=== PATIENT | female | born 1990 | race Caucasian/White ===

== ENCOUNTER 2019-06-09 11:40 | Emergency (ER) | payer OTHER, MEDICAID, SELFPAY ==
[2019-06-09 11:46] VITALS: BP 149/91; PULSE 95; RESP 20; TEMP 38.1; O2SAT 95; BMI 46.3
--- NOTE | 2019-06-09 11:52 | DI.RAD.S_ITS ---
PROCEDURE: XR CHEST 2V INDICATIONS: cough since 05/30/19 TECHNIQUE: 2 views of the chest were acquired. COMPARISON: None. FINDINGS: Surgical changes and devices: None. Lungs and pleura: Lungs are clear. No pleural effusions or pneumothorax. Mediastinum: Mediastinal contours are normal. Heart size is normal. Bones and chest wall: No suspicious bony abnormalities. Soft tissues appear unremarkable. IMPRESSION: No acute cardiopulmonary abnormality demonstrated. Dictated by: Arben Murry M.D. on 06/09/2019 at 12:04 Approved by: Arben Murry M.D. on 06/09/2019 at 12:05
--- NOTE | 2019-06-09 12:51 | ED_ITS ---
HPI - URI/Sore Throat <GHAZAL Cross - Last Filed: 06/09/19 20:26> General Chief Complaint: Upper Respiratory Symptoms Stated Complaint: bronchitis Time Seen by Provider: 06/09/19 12:51 Source: patient Mode of arrival: Family Vehicle Limitations: no limitations History of Present Illness HPI Narrative: This is a 29-year-old female, nonsmoker, who presents to ED with family member with chief complain of cough for last 10 days. Patient was seen at walk-in urgent care on06/04/19 and evaluated and diagnosed with bronchitis. Patient reports posttussive emesis with coughing up to 4 to 5 times a day, difficulty sleeping due to cough, and reports productive cough with green and yellow depends on the day. Patient denies fever, chills, diarrhea. She has been using humidifier at home, Tylenol and Motrin, nasal sprays, albuterol inhaler, Tessalon perles and cough syrup from previous illness. Patient denies wheezing, chest pain, lightheadedness. She reports has been hydrating herself well with the fluids. Patient denies known exposure to illness. LMP <30 days. Related Data Home Medications Medication Instructions Recorded Confirmed meloxicam 15 mg tablet 15 mg PO QPM 06/04/19 06/09/19 duloxetine 60 mg PO QPM 06/09/19 06/09/19 rizatriptan 10 mg PO PRN PRN 06/09/19 06/09/19 Previous Rx's Medication Instructions Recorded albuterol sulfate 90 mcg/actuation 2 puff INHALATION Q4-6H PRN #8 gram 06/04/19 aerosol inhaler benzonatate 100 mg capsule 100 mg PO BID-TID PRN #20 cap 06/04/19 inhalational spacing device #1 each 06/04/19 ondansetron 4 mg PO Q8H PRN 4 Days tab 06/09/19 prednisone 40 mg PO DAILY 4 Days #8 tab 06/09/19 promethazine-codeine 5 - 10 ml PO Q6H PRN #200 ml 06/09/19 Allergies Allergy/AdvReac Type Severity Reaction Status Date / Time No Known Drug Allergies Allergy Verified 06/09/19 11:51 Review of Systems <GHAZAL Cross - Last Filed: 06/09/19 20:26> Review of Systems Narrative: General: Reports has not been sleeping well at night. Denies fever, chills, malaise, sweats. HEENT: Denies sinus pain, ear pain, sore throat, difficulty swallowing, dizziness. Respiratory: See HPI Cardiovascular: Denies chest pain, palpitations, orthopnea, edema. Gastrointestinal: Vomiting after severe cough about 4 to 5 times a day. Denies nausea, abdominal pain, diarrhea, constipation, melena. : Denies dysuria, frequency, incontinence, hematuria, urinary retention. Musculoskeletal: Denies weakness, joint pain or bony pain. Skin: Denies rash, skin lesions, or other. Neurologic: Denies weakness, headache, numbness, change in speech, confusion, seizures, incoordination. Psychiatric: No concerning psychosocial issues. 12-point review of systems is negative except for those stated above. Patient History <GHAZAL Cross - Last Filed: 06/09/19 20:26> Social History Smoking Status: Never smoker Smoking Status: Never smoker alcohol intake frequency: 0-2 drinks per day Substance Use Type: does not use Exam <GHAZAL Cross - Last Filed: 06/09/19 20:26> Narrative Exam Narrative: GEN: Alert, oriented x 3, well appearing and nourished, appears to be tired but in no acute distress. Head: Normal cephalic, atraumatic. No scalp or temporal tenderness, palpable mass or rash. EYES: Pupils are equal, round, and reactive to light and accommodation. Extraocular muscles are intact bilaterally. There is no subconjunctival hemorrhage, exudate and sclera non-icteric. ENT: Bilateral auditory canals and tympanic membranes clear. Hearing grossly intact. Nasal congestion during conversation. Nose without bleeding, purulent discharge or deviation. Facial sinuses nontender to palpate. Mucous membrane moist, no mucosal lesion. Throat without erythema, tonsillar hypertrophy or exudate. Uvula in midline, airway patent. Neck: Trachea in midline. No JVD, non-tender without lymphadenopathy. No masses or thyroid megaly. Supple, non-tender and no meningeal signs. CARDIAC: Normal regular rate and rhythm without murmurs, gallops, or rubs. No chest wall tenderness. No peripheral edema, cyanosis or pallor. Capillary refill is less than 2 seconds. RESPIRATORY: Lungs are clear to auscultate bilaterally. Frequent nonproductive cough witnessed during exam. No wheezes, rales, or rhonchi. No stridor, respiratory distress, increase work of breathing, or accessary muscle used. ABD: Abdomen soft, nontender and non-distended. No guarding or rebound tenderness to palpate. Bowel sounds are normal in all 4 quadrants. There is no palpable masses or organomegaly. EXT: Full painless ROM of all extremities with no loss of sensation, strength, effusion or edema. SKIN: Warm, dry, normal color for patient. No erythema, lesions or rash over visible areas. BACK: Nontender without deformity or crepitance. No flank tenderness. NEUROLOGICAL: Alert and oriented to place, time and person. Sensation and motor function intact bilaterally. No facial droops, dysphasia. PSYCHIATRIC: Good judgement and reason, without hallucinations, abnormal affect or abnormal behaviors during the examination. Patient is not suicidal. Initial Vital Signs Initial Vital Signs: Vital Signs Temperature 100.5 F H 06/09/19 11:46 Pulse Rate 95 H 06/09/19 11:46 Respiratory Rate 20 06/09/19 11:46 Blood Pressure 149/91 H 06/09/19 11:46 Pulse Oximetry 95 06/09/19 11:46 <Meggan Dawn DO - Last Filed: 06/10/19 07:13> Initial Vital Signs Initial Vital Signs: Vital Signs Temperature 100.5 F H 06/09/19 11:46 Pulse Rate 95 H 06/09/19 11:46 Respiratory Rate 20 06/09/19 11:46 Blood Pressure 149/91 H 06/09/19 11:46 Pulse Oximetry 95 06/09/19 11:46 Course <GHAZAL Cross - Last Filed: 06/09/19 20:26> Orders Ordered: Discontinued Medications Albuterol/Ipratropium (Duoneb) 3 ml INH NOW ONE Stop: 06/09/19 14:13 Last Admin: 06/09/19 14:43 Dose: 3 ml Documented by: YADIEL Prednisone (Deltasone) 60 mg PO NOW ONE Stop: 06/09/19 14:13 Last Admin: 06/09/19 14:33 Dose: 60 mg Documented by: ISIDRO Vital Signs Vital signs: Vital Signs - 8 hr 06/09/19 13:27 06/09/19 14:30 06/09/19 14:51 Pulse Rate 84 93 H 89 Respiratory Rate 16 18 Blood Pressure Blood Pressure [Left Arm] 112/68 108/59 L Pulse Oximetry 98 99 98 06/09/19 15:00 06/09/19 15:35 Pulse Rate 92 H 86 Respiratory Rate 18 18 Blood Pressure 115/75 Blood Pressure [Left Arm] 90/56 L Pulse Oximetry 96 97 <Meggan Dawn DO - Last Filed: 06/10/19 07:13> Orders Ordered: Discontinued Medications Albuterol/Ipratropium (Duoneb) 3 ml INH NOW ONE Stop: 06/09/19 14:13 Last Admin: 06/09/19 14:43 Dose: 3 ml Documented by: YADIEL Prednisone (Deltasone) 60 mg PO NOW ONE Stop: 06/09/19 14:13 Last Admin: 06/09/19 14:33 Dose: 60 mg Documented by: ISIDRO Vital Signs Vital signs: Vital Signs - 8 hr 06/09/19 13:27 06/09/19 14:30 06/09/19 14:51 Pulse Rate 84 93 H 89 Respiratory Rate 16 18 Blood Pressure Blood Pressure [Left Arm] 112/68 108/59 L Pulse Oximetry 98 99 98 06/09/19 15:00 06/09/19 15:35 Pulse Rate 92 H 86 Respiratory Rate 18 18 Blood Pressure 115/75 Blood Pressure [Left Arm] 90/56 L Pulse Oximetry 96 97 MDM - URI/Sore Throat <GHAZAL Cross - Last Filed: 06/09/19 20:26> Differential Diagnosis Differential diagnosis: Likely upper respiratory infection, bronchitis and other (Pneumonia) Medical Records Attestation: I reviewed the patient's medical records. Imaging Data Chest x-ray: Radiologist's impression: [address] [address] XRay Report Signed Patient: Norma Cano [facility]#: [id number] : 1990Acct:[id number] Age/Sex: 29 / FDate of Service: 06/09/19 Loc: ED Accession Number: [id number] Procedure: XR chest 2V Ordering Provider: Meggan Dawn D.O. PROCEDURE: XR CHEST 2V INDICATIONS: cough since 05/30/19 TECHNIQUE: 2 views of the chest were acquired. COMPARISON: None. FINDINGS: Surgical changes and devices: None. Lungs and pleura: Lungs are clear. No pleural effusions or pneumothorax. Mediastinum: Mediastinal contours are normal. Heart size is normal. Bones and chest wall: No suspicious bony abnormalities. Soft tissues appear unremarkable. IMPRESSION: No acute cardiopulmonary abnormality demonstrated. Dictated by: Arben Murry M.D. on 06/09/2019 at 12:04 Approved by: Arben Murry M.D. on 06/09/2019 at 12:05 [facility] Narrative Medical decision making narrative: This is a 29-year-old female who presents to ED with severe cough and post-tussive emesis which started about 10 days ago. Patient was evaluated at walk-in clinic and diagnosed with bronchitis 5 days ago . Patient has been self treating with myzi-avg-oihpeiq medications cold medication, humidifier, occasional albuterol inhaler, prescribed cedein- guaifenesin. Lung sounds are clear without wheezing. Patient had frequent nonproductive cough while in ED. chest x-ray shows no acute findings including pneumonia. Patient was medicated with prednisone 60 mg and DuoNeb treatment. With ice water without nausea or vomiting while in ED. patient's O2 sat had improved to 97%-99% from 95% after the nebulizer treatment. Patient advised continue with supportive care and discharged to home with promethazine/codeine cough elixir for night use, short burst of prednisone use and advised to use albuterol inhaler with spacer as needed for frequent coughing. Patient also provided with a prescription of Zofran so that she could hydrate well. Return precautions were discussed with the patient and patient verbalized understanding and agrees with the treatment plan. Discharge Plan Departure Patient Disposition: Home Clinical Impression: Bronchitis Discharge Date/Time: 06/09/19 15:40 Instructions: DI for Acute Bronchitis Activity Restrictions/Additional Instructions: You have been diagnosed with [bronchitis. Chest x-ray today does not show acute findings such as pneumonia.]. What to do: *Take your medications as directed. Please continue with her medications such as Flonase, Tessalon perle, albuterol inhaler 2 puffs every 4 hours for frequent coughing, Tylenol/Motrin for discomfort and fever. Please hydrate well and push fluids. *Follow up with your primary care provider in 2-3 days, call for an appointment. Let them know you were seen in the ED and that we asked you to be seen in follow up. *Return to ED if you have any new, worsening, or concerning symptoms, such as [increasing chest pain, different type of chest pain, breathing difficulty, unable to tolerate fluids, high fever, or any acute concerns]. Prescriptions: New promethazine-codeine 6.25-10 mg/5 mL syrup 5 - 10 ml PO Q6H PRN (Reason: cough) Qty: 200 RF: 0 ondansetron 4 mg tablet,disintegrating 4 mg PO Q8H PRN (Reason: nausea and vomiting) 4 Days RF: 0 prednisone 20 mg tablet 40 mg PO DAILY 4 Days Qty: 8 RF: 0 No Action meloxicam 15 mg tablet 15 mg PO QPM RF: 0 albuterol sulfate 90 mcg/actuation HFA aerosol inhaler 2 puff INHALATION Q4-6H PRN (Reason: Cough, shortness of breath, wheezing) Qty: 8 RF: 0 benzonatate [Tessalon Perles] 100 mg capsule 100 mg PO BID-TID PRN (Reason: cough) Qty: 20 RF: 0 (DME) AeroTrach Plus Spacer See Rx Instructions .ROUTE .MEDSUPPLY Qty: 1 RF: 0 rizatriptan 10 mg tablet,disintegrating 10 mg PO PRN PRN (Reason: Migraine Headache) RF: 0 duloxetine 60 mg Capsule,Delayed Release(Dr/Ec) 60 mg PO QPM RF: 0 Referrals: Romy Samano PA-C [Non-Staff] -
[2019-06-09 13:27] VITALS: BP 112/68; PULSE 84; RESP 16; O2SAT 98
[2019-06-09 14:30] VITALS: BP 108/59; PULSE 93; RESP 18; O2SAT 99
[2019-06-09] MEDS: predniSONE 20 MG TABLET 60 MG PO (14:33)
[2019-06-09] MEDS: ALBUTEROL/IPRATROPIUM 3 ML AMPUL INH (14:43)
[2019-06-09 14:51] VITALS: PULSE 89; O2SAT 98
[2019-06-09 15:00] VITALS: BP 90/56; PULSE 92; RESP 18; O2SAT 96
[2019-06-09 15:35] VITALS: BP 115/75; PULSE 86; RESP 18; O2SAT 97
== END 2019-06-09 15:40 | disposition home or self-care (01) ==
PROVIDERS: Emergency Provider Nurse Practitioner Family
DX: J20.9 Acute bronchitis, unspecified (principal); R11.11 Vomiting without nausea
CPT/HCPCS: 71046; 94640; 99283